=== PATIENT | female | born 1995 | race Caucasian/White ===

== ENCOUNTER 2020-06-19 16:23 | Emergency (ER) | payer BC, OTHER ==
[2020-06-19 16:51] VITALS: BMI 25.7
[2020-06-19 17:16] LABS: BASO % 0.6 % (0-2.0); EOS % 1.6 % (0-4.5); HEMATOCRIT 35.6 % (32.4-45.2); LYMPH % 54.5 % (8-40); MCH 33.5 pg (25.7-33.7); MCHC 33.8 g/dl (32.0-36.0); MEAN PLT VOLUME 7.2 fl (7.5-11.1); NEUT % 39.3 % (42.8-82.8); PLATELET COUNT 350 K/MM3 (134-434); RDW 12.6 % (11.6-15.6); WHITE BLOOD COUNT 6.3 K/mm3 (4.0-10.0)
[2020-06-19 18:09] LABS: ALBUMIN 3.9 g/dl (3.4-5.0); ALK PHOS 63 U/L (45-117); ANION GAP 8 MMOL/L (8-16); BILIRUBIN,TOTAL 0.6 mg/dL (0.2-1); BLOOD UREA NITROGEN 8.6 mg/dL (7-18); CALCIUM 9.5 mg/dL (8.5-10.1); CHLORIDE 108 mmol/L (98-107); CO2 25 mmol/L (21-32); CREATININE 0.7 mg/dL (0.55-1.3); GLUCOSE,RANDOM 110 mg/dL (74-106); POTASSIUM 3.5 mmol/L (3.5-5.1); SGOT/AST 21 U/L (15-37); SGPT/ALT 16 U/L (13-61); SODIUM 140 mmol/L (136-145); TOT PROT 7.4 g/dl (6.4-8.2)
--- NOTE | 2020-06-19 18:16 | PDOC ---
Documentation entered by Theron Garcia SCRIBE, acting as scribe for Theodore Paz MD. Theodore Paz MD: This documentation has been prepared by the blossomibe, Theron Garcia SCRIBE, under my direction and personally reviewed by me in its entirety. I confirm that the documentation accurately reflects all work, treatment, procedures, and medical decision making performed by me. Attending Attestation - Resident Resident Name: Elfego Mahmood - ED Attending Attestation I have performed the following: I have examined & evaluated the patient, The case was reviewed & discussed with the resident, I agree w/resident's findings & plan, Exceptions are as noted - HPI HPI: 06/19/20 16:46 The patient is a 25 year old female with a significant past medical history of gastric bypass surgery and dumping syndrome who presents to the emergency department, [facility], for evaluation of a syncopal episode this evening. Pt states that she takes propranolol for her anxiety. She took 2 doses yesterday at the instruction of her PMD due to increased stress at work. Today, pt states that she began to feel anxious while at work, so she took one more dose at approx 10am. Pt reports feeling fine until approx 4pm, when she started to feel lightheaded. Pt went to the bathroom, where she felt her vision darken, and she fell to the ground. Pt denies headstrike. Denies LOC, states she was awake for the whole episode. At time of evaluation, pt states she feels much better. Denies lightheadedness/dizziness. Denies CP/SOB. The patient denies chest/abdominal/back pain, cough, and shortness of breath. Denies fever, chills, nausea, vomiting, and/or any GI symptoms. Denies any symptoms. Denies any other symptoms. Allergies: Not recorded Surgical Hx: gastric bypass surgery - Physicial Exam PE: 06/19/20 16:33 "GENERAL: Awake, alert, and fully oriented, in no acute distress. HEAD: No signs of trauma EYES: PERRLA, EOMI, sclera anicteric, conjunctiva clear ENT: Auricles normal inspection, hearing grossly normal, nares patent, oropharynx clear without exudates. Moist mucosa NECK: Nontender, no stepoffs, Normal ROM, supple, no lymphadenopathy, JVD, or masses LUNGS: Breath sounds equal, clear to auscultation bilaterally. No wheezes, and no crackles HEART: Regular rate and rhythm, normal S1 and S2, no murmurs, rubs or gallops ABDOMEN: Soft, nontender, normoactive bowel sounds. No guarding, no rebound. No masses EXTREMITIES: Normal range of motion, no edema. No clubbing or cyanosis. No cords, erythema, or tenderness NEUROLOGICAL: Cranial nerves II through XII intact. 5/5 strength and sensation in all extremities, Normal speech, normal gait, normal cerebellar function SKIN: Warm, Dry, normal turgor, no rashes or lesions noted." - Medical Decision Making 06/19/20 18:18 25 F with presyncope after taking propranolol. Pt bradycardic in ED but normal BP. EKG shows TWIs in leads V1-V3 and aVL. Pt with no chest pain. - Labs, cardiac profile - IV fluids - Reassess 06/19/20 18:37 Labs wnl Pt reassessed - states she feels much better Will obtain orthostats, ambulate pt Pending CT head Pt signed out to Dr. Wisdom at 7pm, pending CT head results, orthostatic vital signs, and re-evaluation. Discharge - Discharge Information Problems reviewed: Yes Clinical Impression/Diagnosis: Bradycardia by electrocardiogram, Inverted T wave Altered mental status Qualifiers: Altered mental status type: disorientation Qualified Code(s): R41.0 - Disorientation, unspecified Condition: Stable Disposition: AGAINST MEDICAL ADVICE - Follow up/Referral Referrals: [facility] [place] [facility] [place] [Provider Group] ON STAFF,NOT [Primary Care Provider] - - Patient Discharge Instructions Patient Printed Discharge Instructions: Bradycardia, DI for Altered Mental Status, DI for Bradycardia Additional Instructions: You came to the ED after losing consciousness at work. When you arrived here you were altered, sweaty, and had a very slow heartrate. On further exam, we discovered an abnormality with your EKG - a phenomenon called "T-wave inversion in 3 contiguous leads." Although this may not be serious, it is very important you follow up with your primary doctor within 48hours. Come back if you develop any severe symptoms. - Post Discharge Activity
[2020-06-19] MEDS ORDERED: SODIUM CHLORIDE 1,000 ML IV STA (18:20)
--- NOTE | 2020-06-19 19:14 | PDOC ---
History of Present Illness - General Chief Complaint: Altered Mental Status Stated Complaint: AMS Time Seen by Provider: 06/19/20 16:26 - History of Present Illness Initial Comments: 06/19/20 19:01 25yo F w/ PMHx gastric bypass surgery in 2016 and residual chronic Dumping Syndromes in which she becomes "very sweaty and cold" BIBEMS from her work at the [employer] after being found unconscious in the bathroom. She was AMS in t he ambulance, bradycardic, but all other vs were wnl. Her mental status has improved since arriving here. She reports that this progression of events is common but not nearly this severe. She has had these episodes chronically since her gastric bypass. She states that she was started on propanolol and lexapro after her grandmother succummed to COVID in December. She stopped the lexapro weeks ago until this morning, when she restarted it. She also reports taking her propanolol. She states she was at work today and felt fine. She got an "extra sweet" coffee from [employer] from lunch and soon thereafter started to feel nauseous. She does not remember anything after that. 06/19/20 19:19 Diaphoretic + bradycardic + ALOC -> intracerebral, tox, and metabolic work up CT negative, Tox negative, metabolic workup negative -> will rehydrate, perform orthostatics, ambulate pt, and make sure she can tolerate PO. If so, then will send home with f/u with PCP Past History - Medical History Allergies/Adverse Reactions: Allergies Allergy/AdvReac Type Severity Reaction Status Date / Time No Known Allergies Allergy Verified 06/19/20 17:52 COPD: No GI Disorders: Yes (dumping syndrome) - Surgical History GI Surgery: Yes (gastric bipass) - Reproductive History Is Patient Now?: No - Psycho-Social/Smoking History Smoking History: Never smoked Have you smoked in the past 12 months: No Information on smoking cessation initiated: No - Substance Abuse Hx (Audit-C & DAST Scrn) How often the patient has a drink containing alcohol: Never Score: In Men: 4 or > Positive; In Women: 3 or > Positive: 0 Screen Result (Pos requires Nsg. Audit-10AR): Negative In the last yr the pt used illegal drug/Rx for NonMed reason: Yes Score: Yes response is considered Positive: 1 Screen Result (Positive result requires Nsg. DAST-10): Positive Review of Systems - Review of Systems Able to Perform ROS?: No (altered/lethargic) *Physical Exam - Vital Signs Last Vital Signs Temp Pulse Resp BP Pulse Ox 93.4 F L 40 L 20 117/76 100 06/19/20 16:46 06/19/20 16:46 06/19/20 16:46 06/19/20 16:46 06/19/20 16:46 - Physical Exam General Appearance: Yes: Nourished, Appropriately Dressed, Apparent Distress, Disheveled. No: Alcohol on Breath HEENT: positive: EOMI, ARTIE (pupils not pinpointed, not dilated), Other (drooling). negative: Normal Voice (reports voice sounds mildly hoarse) Neck: positive: Trachea midline. negative: Tender Respiratory/Chest: positive: Lungs Clear, Normal Breath Sounds. negative: Respiratory Distress Cardiovascular: positive: Regular Rhythm, Bradycardia Gastrointestinal/Abdominal: positive: Normal Bowel Sounds, Soft Musculoskeletal: positive: Normal Inspection. negative: CVA Tenderness Extremity: positive: Normal Capillary Refill, Normal Inspection Integumentary: positive: Cold, Clammy, Diaphoresis Neurologic: negative: fireworks maker II-XII NML intact, Fully Oriented, Alert, Normal Response ED Treatment Course - LABORATORY CBC & Chemistry Diagram: 06/19/20 16:51 06/19/20 16:51 - ADDITIONAL ORDERS Additional order review: Laboratory Results 06/19/20 06/19/20 06/19/20 16:51 16:51 16:51 Sodium 140 Potassium 3.5 Chloride 108 H Carbon Dioxide 25 Anion Gap 8 BUN 8.6 Creatinine 0.7 Est GFR (CKD-EPI)AfAm 141.54 Est GFR (CKD-EPI)NonAf 122.12 Random Glucose 110 H Calcium 9.5 Total Bilirubin 0.6 AST 21 ALT 16 Alkaline Phosphatase 63 Creatine Kinase 221 H Creatine Kinase Index 0.4 CK-MB (CK-2) 1.1 Troponin I < 0.02 Total Protein 7.4 Albumin 3.9 Serum , Qual Negative Salicylates 3.6 Acetaminophen < 2 Alcohol, Quantitative < 3 06/19/20 16:51 RBC 3.60 MCV 99.0 H MCHC 33.8 RDW 12.6 MPV 7.2 L Neutrophils % 39.3 L Lymphocytes % 54.5 H Monocytes % 4.0 Eosinophils % 1.6 Basophils % 0.6 - RADIOLOGY Radiology Studies Ordered: Category Date Time Status HEAD CT WITHOUT CONTRAST [CT] Stat CT Scan 06/19/20 16:26 Taken Medical Decision Making - Medical Decision Making 06/19/20 19:18 25yo F presents with amplified sx of her usual Dumping Syndrome Discharge - Discharge Information Problems reviewed: Yes Clinical Impression/Diagnosis: Bradycardia by electrocardiogram, Inverted T wave Altered mental status Qualifiers: Altered mental status type: disorientation Qualified Code(s): R41.0 - Disorientation, unspecified Disposition: AGAINST MEDICAL ADVICE - Admission No - Follow up/Referral Referrals: ON STAFF,NOT [Primary Care Provider] - [facility] [place] [facility] [place] [Provider Group] - Patient Discharge Instructions Patient Printed Discharge Instructions: Bradycardia, DI for Altered Mental Status, DI for Bradycardia Additional Instructions: You came to the ED after losing consciousness at work. When you arrived here you were altered, sweaty, and had a very slow heartrate. On further exam, we discovered an abnormality with your EKG - a phenomenon called "T-wave inversion in 3 contiguous leads." Although this may not be serious, it is very important you follow up with your primary doctor within 48hours. Come back if you develop any severe symptoms. - Post Discharge Activity
[2020-06-19 20:32] VITALS: BP 109/66; PULSE 53; TEMP 93.8
--- NOTE | 2020-06-20 13:24 | EKG ---
Test Reason : Blood Pressure : / mmHG Vent. Rate : 041 BPM Atrial Rate : 041 BPM P-R Int : 176 ms QRS Dur : 108 ms QT Int : 560 ms P-R-T Axes : 067 090 077 degrees QTc Int : 462 ms MARKED SINUS BRADYCARDIA RIGHTWARD AXIS T WAVE ABNORMALITY, CONSIDER ANTERIOR ISCHEMIA ABNORMAL ECG NO PREVIOUS ECGS AVAILABLE Confirmed by LEATHA MAY MD ([id number]) on 06/20/2020 1:23:36 PM Referred By: Confirmed By:LEATHA MAY MD
== END 2020-06-19 20:32 | disposition left against medical advice (07) ==
LOC: JER 16:23
PROC: 3E0337Z Introduction of Electrolytic and Water Balance Substance into Peripheral Vein, Percutaneous Approach (ICD-10-PCS; principal; 2020-06-19)
DX: R41.0 Disorientation, unspecified (principal); R00.1 Bradycardia, unspecified; R94.31 Abnormal electrocardiogram [ECG] [EKG]
CPT/HCPCS: 36415; 70450-TC; 71045-TC-FY; 80053; 80307; 82550; 82553; 84484; 84703; 85025; 93005; 93010; 99285-25; C9803; U0003